=== PATIENT | male | born 1955 | race Caucasian/White ===

== ENCOUNTER 2021-04-27 21:02 | Inpatient (IN) | payer SELFPAY ==
[~2021-04-27] VITALS: Ht 177.8 cm; Wt 88.6 kg
--- NOTE | 2021-04-27 21:08 | NUR ---
PT BIB EMS TRANSFER FROM [facility]. 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 PER TRANSFER FACILITY AND EMS, PT HAS NOT HAD A WITNESSED 3RD DEGREE BLOCK. UPON ARRIVAL TO [facility] ED, PT ATTACHED TO VS AND CARDIAC MONITORS. EKG DONE AT BS AND PT WITH STABLE VS AT THIS TIME. DR CARLTON AT BS FOR PT HISTORY AND ASSESSMENT. PT HAS CALL LIGHT WITHIN REACH AND VERBALIZES UNDERSTANDING OF POC. PT QUESTIONS ANSWERED BY DR CARLTON AT THIS TIME.
--- NOTE | 2021-04-27 21:10 | NUR ---
PER DR CARLTON, [employer] TO BE CONTACTED FOR INTERROGATION OF HOLTER MONITOR. REPORT OF PT TO ANGELA AGUIRRE AT THIS TIME. ALL QUESTIONS ANSWERED.
--- NOTE | 2021-04-27 21:20 | NUR ---
FIRST ENCOUTNER WITH PATIENT: PATIENT UPDATED ON PLAN OF CARE. VSS. NO NOTED ADDITIONAL NEEDS AT THIS TIME. WILL CONTINUE TO MONITOR. SIDE RAILS X 1 UP. CALL LIGHT WITHIN REACH, BED IN LOWEST LOCKED POSITION.
[2021-04-27 21:29] LABS: BASOPHILS % (AUTO) 1 % (0-1); EOSINOPHILS % (AUTO) 4 % (1-7); LYMPHOCYTES % (AUTO) 34 % (22-44); MEAN CORPUSCULAR HEMOGLOBIN 31.8 pg (27.5-34.5); MEAN CORPUSCULAR HGB CONC 33.9 g/dL (33.2-36.2); MEAN PLATELET VOLUME 10.9 fL (7.4-10.4); MONOCYTES % (AUTO) 10 % (2-9); NEUTROPHILS % (AUTO) 52 % (42-75); PLATELET COUNT 150 x10^3/uL (130-400); RED BLOOD COUNT 5.26 x10^6/uL (4.38-5.82); RED CELL DISTRIBUTION WIDTH 13.5 % (9.4-14.8)
[2021-04-27] MEDS ORDERED: SODIUM CHLORIDE FLUSH 10ML SYR IVF ONE (21:30)
[2021-04-27 21:34] LABS: ALBUMIN 3.7 g/dL (3.4-5.0); ANION GAP 4 mmol/L (5-15); CALCIUM 9.5 mg/dL (8.5-10.1); CHLORIDE 107 mmol/L (98-107)
[2021-04-27 21:38] LABS: TROPONIN I 0.098 ng/mL (0.000-0.045)
--- NOTE | 2021-04-27 21:45 | NUR ---
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 MD CARLTON VERIFIED PATIENT'S DIET. PATIENT PROVIDED WITH FOOD. NO OTHER ADDITIONAL NEEDS NOTED AT THIS TIME. WILL CONTINUE TO MONITOR.
--- NOTE | 2021-04-27 22:56 | NUR ---
PATIENT RESTING IN BED, NO NOTED NEEDS AT THIS TIME. WILL CONTINUE TO MONITOR. VSS. CALL LIGHT WITHIN REACH, BED IN LOWEST LOCKED POSITION, SIDE RAILS X 2 UP.
[2021-04-28] MEDS ORDERED: SODIUM CHLORIDE FLUSH 10ML SYR IVF PRN
--- NOTE | 2021-04-28 00:25 | NUR ---
[facility]: MULTIPLE PHONE CALLS MADE IN ATTEMPT TO GET REPORT FROM PT. EXTERNAL CARDIAC MONIOR. CALLED THE PHONE NUMBER PROVIDED BY PT. AND WAS LED TO CALL [facility]. [facility] PHONE NUMBER [phone]. REPORT TO BE FAXED TO US AT THIS TIME.
[2021-04-28] MEDS ORDERED: BISACODYL 10 MG SUPP PR PRN (00:30)
[2021-04-28] MEDS ORDERED: POLYETHYLENE GLYCOL 17 GM PACKET PO PRN (00:30)
[2021-04-28] MEDS ORDERED: ACETAMINOPHEN 325 MG TABLET PO PRN (00:30)
[2021-04-28] MEDS ORDERED: ONDANSETRON ODT 4 MG PO PRN (00:30)
--- NOTE | 2021-04-28 00:56 | NUR ---
CHILD PROTECTIVE SERVICES SPECIALIST: FAX NEVER RECEIVED FROM [facility]; CALLED BACK ([phone]). PT. TRANSPORTED TO FLOOR AT THIS TIME; WILL SENT UP FAX WHEN RECEIVED.
[2021-04-28] MEDS ORDERED: MELA1TAB8 PO (01:18)
[2021-04-28] MEDS ORDERED: ASPI-647 PO (01:18)
[2021-04-28] MEDS ORDERED: LISI-167 PO (01:20)
[2021-04-28 01:21] VITALS: BP 138/76
[2021-04-28 03:28] LABS: BASOPHILS % (AUTO) 1 % (0-1); EOSINOPHILS % (AUTO) 4 % (1-7); LYMPHOCYTES % (AUTO) 30 % (22-44); MEAN CORPUSCULAR HEMOGLOBIN 31.9 pg (27.5-34.5); MEAN CORPUSCULAR HGB CONC 34.1 g/dL (33.2-36.2); MEAN PLATELET VOLUME 10.7 fL (7.4-10.4); MONOCYTES % (AUTO) 11 % (2-9); NEUTROPHILS % (AUTO) 54 % (42-75); PLATELET COUNT 125 x10^3/uL (130-400); RED BLOOD COUNT 4.99 x10^6/uL (4.38-5.82); RED CELL DISTRIBUTION WIDTH 13.5 % (9.4-14.8)
[2021-04-28 03:44] LABS: ALANINE AMINOTRANSFERASE 30 U/L (12-78); ALBUMIN 3.4 g/dL (3.4-5.0); ANION GAP 5 mmol/L (5-15); CALCIUM 9.1 mg/dL (8.5-10.1); CHLORIDE 107 mmol/L (98-107); CREATININE 1.02 mg/dL (0.7-1.3)
[2021-04-28 03:46] LABS: ALKALINE PHOSPHATASE 64 U/L (45-117); BILIRUBIN,TOTAL 0.5 mg/dL (0.2-1.0); TOTAL PROTEIN 6.7 g/dL (6.4-8.2)
[2021-04-28 03:47] LABS: TROPONIN I 0.071 ng/mL (0.000-0.045)
[2021-04-28] MEDS: SENNA/DOCUSATE TABLET PO SCH (08:07)
[2021-04-28] MEDS: ASPIRIN 81 MG TABLET EC PO SCH (08:07)
[2021-04-28 08:40] VITALS: BP 166/71
[2021-04-28 09:14] LABS: TROPONIN I 0.055 ng/mL (0.000-0.045)
[2021-04-28 14:10] VITALS: BP 146/76
[2021-04-28] MEDS ORDERED: MIDAZOLAM 1 MG/ML, 5ML ONE (14:56)
[2021-04-28] MEDS ORDERED: LIDOCAINE 2%, 20ML ONE (14:56)
[2021-04-28] MEDS ORDERED: FENTANYL PF 100 MCG/2ML ONE (14:56)
[2021-04-28] MEDS ORDERED: CEFAZOLIN 1,000 MG ONE (14:57)
[2021-04-28] MEDS ORDERED: CEFAZOLIN PMX 1GM/50ML 50 ML ONE (14:57)
[2021-04-28] MEDS ORDERED: HOLD MEDICATION MC PRN (16:30)
[2021-04-28] MEDS ORDERED: HYDROcodone/APAP 5/325 TABLET PO PRN (16:30)
[2021-04-28 20:33] VITALS: BP 134/72
[2021-04-28] MEDS: SODIUM CHLORIDE FLUSH 10ML SYR IVF SCH (20:33)
[2021-04-28] MEDS ORDERED: ATORVASTATIN 40 MG TABLET PO SCH (21:00)
[2021-04-28] MEDS: CEFAZOLIN PMX 1GM/50ML 50 ML IVPB SCH (23:21)
[2021-04-29 02:57] VITALS: BP 147/78
[2021-04-29 05:54] LABS: CHOL/HDL RATIO 4.8; LDL/HDL RATIO 2.9 (0.5-3.0)
[2021-04-29] MEDS: CEFAZOLIN PMX 1GM/50ML 50 ML IVPB SCH (06:35)
[2021-04-29 07:50] VITALS: BP 154/65
[2021-04-29] MEDS: SODIUM CHLORIDE FLUSH 10ML SYR IVF SCH (09:00)
[2021-04-29] MEDS: ASPIRIN 81 MG TABLET EC PO SCH (09:17)
[2021-04-29] MEDS: SENNA/DOCUSATE TABLET PO SCH (09:17)
[2021-04-29] MEDS ORDERED: DOXY100C2 PO (11:28)
[2021-04-29] MEDS ORDERED: HYDR-2214 PO (11:28)
== END 2021-04-29 13:45 | disposition home or self-care (01) | DRG 244 ==
LOC: ED 21:32 → 5SO 04-28 01:32
PROVIDERS: ADMIT Internal Medicine; ATTEND Internal Medicine
PROC: 0JH606Z Insertion of Pacemaker, Dual Chamber into Chest Subcutaneous Tissue and Fascia, Open Approach (ICD-10-PCS; principal; 2021-04-28)
PROC: 02HK3JZ Insertion of Pacemaker Lead into Right Ventricle, Percutaneous Approach (ICD-10-PCS; 2021-04-28)
PROC: 02H63JZ Insertion of Pacemaker Lead into Right Atrium, Percutaneous Approach (ICD-10-PCS; 2021-04-28)
DX: I44.2 Atrioventricular block, complete (principal); E10.9 Type 1 diabetes mellitus without complications; I10 Essential (primary) hypertension; M14.672 Charcot's joint, left ankle and foot; Z66 Do not resuscitate; Z79.4 Long term (current) use of insulin; Z80.9 Family history of malignant neoplasm, unspecified; Z87.891 Personal history of nicotine dependence; Z89.612 Acquired absence of left leg above knee; Z89.512 Acquired absence of left leg below knee; Z88.8 Allergy status to other drugs, medicaments and biological substances
CPT/HCPCS: 33208; 36415; 71045; 80048; 80053; 80061; 82040; 82962; 83880; 84484; 85025; 93005; 99156; 99157; C1779; C1785; C1892; G0378; J0690; J2250; J3010